=== PATIENT | male | born 1990 | race African-American/Black ===

== ENCOUNTER 2016-09-04 06:37 | Day surgery (SDC) | payer OTHER ==
[2016-08-31 15:54] VITALS: BMI 23.6
[2016-09-04] MEDS ORDERED: ePHEDrine SULFATE 50 MG/1 ML AMPULE ONE (07:13)
[2016-09-04] MEDS ORDERED: SUCCINYLCHOLINE CHLORIDE 200 MG/10 ML VIAL ONE ×3 (07:13)
[2016-09-04] MEDS ORDERED: PROPOFOL 20 ML ONE ×3 (07:26→08:35)
[2016-09-04] MEDS ORDERED: LIDOCAINE HCL/PF 2% SDV 5ML VIAL ONE (07:27)
[2016-09-04] MEDS ORDERED: SODIUM CHLORIDE 0.9% P/F 10 ML VIAL IJ ONE (07:27)
[2016-09-04] MEDS ORDERED: MIDAZOLAM HCL 2 MG/2 ML SINGLE DOSE VIAL ONE ×2 (07:27)
[2016-09-04] MEDS ORDERED: LEVOFLOXACIN 500 MG IVPB 100 ML IVPB ONE (08:14)
[2016-09-04] MEDS ORDERED: LEVOFLOXACIN 500 MG PREMIX BAG IVPB ONE (08:16)
[2016-09-04] MEDS ORDERED: DESFLURANE GAS 240 ML BOTTLE IH ONE (08:20)
[2016-09-04] MEDS ORDERED: ALBUTEROL SO4 6.7 GM HFA INHALER IH ONE (08:48)
--- NOTE | 2016-09-04 09:12 | OP ---
Operative Note - Note: Operative Date: 09/04/16 Pre-Operative Diagnosis: retrograde ejaculation and bulbous uretral stricure Operation: cystoscopy; laser urethrotomy; urethral dialtion with megan dilators Findings: bulbous urethral stricture; incision made away from sphincteric mechanism Post-Operative Diagnosis: Same as Pre-op Surgeon: Orlando Monaco Anesthesia: General Drains & Tubes with Location: 20 maltese silastic catheter Operative Report Dictated: Yes
[2016-09-04] MEDS ORDERED: ONDANSETRON 4 MG/2 ML VIAL IVPUSH PRN (09:38)
[2016-09-04] MEDS ORDERED: oxyCODONE HCL 5 MG TABLET PO PRN (09:38)
[2016-09-04] MEDS ORDERED: LACTATED RINGERS SOLUTION 1,000 ML IV SCH (09:45)
[2016-09-04] MEDS ORDERED: ACETAMINOPHEN INJECTION 100 ML IVPB ONE (10:11)
[2016-09-04] MEDS ORDERED: ACETAMINOPHEN 1000 MG/100 ML VIAL (NON FORMULARY) IVPB PRN (10:42)
[2016-09-04 13:09] VITALS: BP 124/63; PULSE 70; TEMP 98.3
--- NOTE | 2016-09-04 13:59 | OP ---
DATE OF OPERATION: 09/04/2016 PREOPERATIVE DIAGNOSIS: Urethral stricture with retrograde ejaculation. POSTOPERATIVE DIAGNOSIS: Urethral stricture with retrograde ejaculation. PROCEDURE: Cystoscopy, urethral dilation with dilators, and laser urethrotomy. ATTENDING: Rosanne Medina MD ANESTHESIA: General. OPERATION: The patient was brought in the operating room, placed in a supine position on the operating room table. General anesthesia was administered without complications and Levaquin 500 mg was administered intravenously for surgical prophylaxis. The patient was then placed in the dorsal lithotomy position and prepped and draped in the usual sterile manner. The patient has a history of a previous laser operation on the urethra and prostatic fossa by another urologist. The patient subsequently developed retrograde ejaculation. The patient had cystoscopy in the office setting, which showed a high-grade urethral stricture. The patient understands that the issue of ejaculation will be followed postoperatively and may not be resolved at this time. The purpose of this operation is to open the urethra. The patient did undergo cystoscopy and a bulbous urethral stricture is noted. Attempts at dilation without the urethrotomy were unsuccessful. A wire was passed proximally into the bladder under fluoroscopic guidance. At this point, a laser urethrotomy was performed utilizing the holmium laser. The incision was made at the 12 o'clock position. A relaxing incision allowed for subsequent dilatation utilizing dilators over the wire. With this accomplished, a 20-Hebrew Silastic catheter was placed into the bladder. The patient tolerated this procedure very well. No complications were noted. The disposition of the patient was to recovery room. ROSANNE MEDINA M.D. [id number]
== END 2016-09-04 12:20 | disposition home or self-care (01) ==
LOC: JASU-SURG 06:37
PROVIDERS: ATTEND Urology
PROC: 0T7D8ZZ Dilation of Urethra, Via Natural or Artificial Opening Endoscopic (ICD-10-PCS; principal; 2016-09-04 08:00)
DX: N35.8 Other urethral stricture (principal); N53.14 Retrograde ejaculation
CPT/HCPCS: 76000-TC; 94760